=== PATIENT | female | born 1980 | race Caucasian/White ===

== ENCOUNTER 2019-06-21 03:25 | Emergency (ER) | payer MEDICAID ==
[~2019-06-21] VITALS: Ht 154.9 cm; Wt 75.7 kg
--- NOTE | 2019-06-21 03:27 | NUR ---
PT HASMU[facility] ALS. TAKEN TO BED 9
--- NOTE | 2019-06-21 03:33 | NUR ---
Dr. Oliver examining patient.
[2019-06-21 03:34] VITALS: BP 146/95
[2019-06-21] MEDS ORDERED: NACL 0.9% 1,000 ML IV ONE (03:40)
--- NOTE | 2019-06-21 03:45 | NUR ---
CALLED RADIOLOGY FOR STAT HEAD CT / CODE BRAIN
--- NOTE | 2019-06-21 03:50 | NUR ---
38 Y/O F BIBA C/O CHEST PAIN PROVOKED BY COUGH X 3 DAYS. ETOH USED REPORTED THIS EVENING. PT STATES RT ARM NUMBNESS AND WEAKNESS ACCOMPANIED LOSS OF SENSATION. UPON ASSESSMENT, PT HAS UNEQUAL TRAFFIC LIEUTENANT AND IS STATING DIFFERENCES IN SENSATION IN RT AND LT ARM. PUPILS REACTIVE, AAO X4, NO FACIAL DROOP NOTED, CLEAR SPEECH, STEADY GAIT. LUNG SOUNDS CLEAR THROUGHOUT. NO RESPIRATORY DISTRESS NOTED, NO USE OF ACCESSORY MUSCLES. BED IN LOWEST POSITION, SIDE RAIL UP X1. HX: DIABETES BS: [id number] ALLERGIES: NKA
--- NOTE | 2019-06-21 03:53 | NUR ---
PT TAKEN TO CT
--- NOTE | 2019-06-21 03:53 | NUR ---
pt transported to ct via [facility].
[2019-06-21 04:03] LABS: BASOPHILS # (AUTO) 0.1 K/uL (0.00-0.22); BASOPHILS % (AUTO) 0.7 % (0.0-2.0); EOSINOPHILS # (AUTO) 0.1 K/uL (0-0.4); EOSINOPHILS % (AUTO) 1.1 % (0.0-4.0); HEMOGLOBIN 12.2 g/dL (12.0-16.0); LYMPHOCYTES # (AUTO) 2.8 K/uL (2.5-16.5); LYMPHOCYTES % (AUTO) 24.1 % (20.5-51.1); MEAN CORPUSCULAR HEMOGLOBIN 20 pg (27-31); MEAN CORPUSCULAR HGB CONC 31 g/dL (33-37); MEAN CORPUSCULAR VOLUME 62.2 fL (80-94); MONOCYTES # (AUTO) 0.6 K/uL (0.8-1.0); MONOCYTES % (AUTO) 5.5 % (1.7-9.3); NEUTROPHILS # (AUTO) 8.1 K/uL (1.8-7.7); NEUTROPHILS % (AUTO) 68.6 % (42.2-75.2); PLATELET COUNT (AUTO) 248 K/uL (140-450); RED BLOOD CELL COUNT(AUTO) 6.27 MIL/uL (4.20-5.40); RED CELL DISTRIBUTION WIDTH 16.3 % (11.6-13.7); WHITE BLOOD COUNT (AUTO) 11.8 K/uL (4.8-10.8)
--- NOTE | 2019-06-21 04:16 | NUR ---
PT RETURN FROM CT
[2019-06-21 04:18] LABS: BARBITURATE, URINE NEGATIVE ng/ml (NEG <=200); BENZODIAZEPINE, URINE NEGATIVE ng/mL (NEG <=200); CANNABINOID, URINE NEGATIVE ng/mL (NEG <=50); COCAINE, URINE NEGATIVE ng/mL (NEG <=300); OPIATE, URINE NEGATIVE ng/mL (NEG <=2000); PHENCYCLIDINE SCREEN,URINE NEGATIVE ng/mL (NEG <=25)
[2019-06-21 04:19] LABS: ANION GAP 20.9 (8-16); ASPARTATE AMINOTRANSFERASE 51 U/L (15-37); CARBON DIOXIDE 20.7 mmol/L (21-32); CHLORIDE 98 mmol/L (98-107); CREATININE 0.8 mg/dL (0.6-1.3); GFR ARICAN-AMERICAN 104 mL/min (>90); POTASSIUM 3.6 mmol/L (3.5-5.1); SODIUM SERUM 136 mmol/L (136-145); TOTAL BILIRUBIN 0.3 mg/dL (0.0-1.0); UREA NITROGEN, BLOOD 9 mg/dL (7-18)
[2019-06-21 04:29] LABS: ACETAMINOPHEN < 0.5 ug/ml (10-30); GLUCOSE 411 mg/dL (74-106); SALICYLATE < 2.8 mg/dL (2.8-20.0)
--- NOTE | 2019-06-21 04:37 | NUR ---
DR. DAVIS AT BEDSIDE.
--- NOTE | 2019-06-21 04:39 | NUR ---
PT ASLEEP, SYMMETRICAL CHEST RISE NOTED. NO RESPIRATORY DISTRESS NOTED. BED IN LOWEST POSITION, SIDE RAIL UP X2. WILL CONTINUE TO MONITOR.
[2019-06-21 05:53] VITALS: BP 130/74
--- NOTE | 2019-06-21 05:55 | NUR ---
Patient discharged with v/s stable. Written and verbal after care instructions given and explained. Patient verbalized understanding. Ambulatory with steady gait. All questions addressed prior to discharge. Advised to follow up with PMD.
== END 2019-06-21 05:55 | disposition home or self-care (01) ==
LOC: MED 03:25
DX: R20.2 Paresthesia of skin (principal); E11.65 Type 2 diabetes mellitus with hyperglycemia
CPT/HCPCS: 36415; 70450; 80053; 80305; 81025; 85025; 96360; 99284; G0480; G0482; J7030

== ENCOUNTER 2019-07-18 00:42 | Emergency (ER) | payer MEDICAID ==
[~2019-07-18] VITALS: Ht 154.9 cm; Wt 79.8 kg
--- NOTE | 2019-07-18 00:49 | NUR ---
ISABEL NOE TO ER BED 4 @ [id number]
--- NOTE | 2019-07-18 00:50 | NUR ---
PT PLACED ON 3 LEAD ECG AND PULSE OX.
--- NOTE | 2019-07-18 00:54 | NUR ---
ERMD BEDSIDE EVALUATING PT
[2019-07-18 01:00] VITALS: BP 123/89
[2019-07-18] MEDS ORDERED: ONDANSETRON 4 MG/2 ML VIAL IVP ONE (01:00)
[2019-07-18] MEDS ORDERED: NACL 0.9% 1,000 ML IV ONE (01:00)
[2019-07-18] MEDS ORDERED: PANTOPRAZOLE 40 MG INJ VIAL IVP ONE (01:00)
--- NOTE | 2019-07-18 01:00 | NUR ---
ASSISTED PT TO RESTROOM TO COLLECT URINE SAMPLE. PT GAIT A LITTLE UNSTEADY. PT STATES FEELS DIZZY. DID NOT LEAVE PT'S SIDE.
--- NOTE | 2019-07-18 01:02 | NUR ---
38 Y/O FEMALE BIBA C/O BLOOD SUGAR 300+ AT HOME AND VOMITING DARK BLOOD PER PT A FEW HOURS AGO. PT WAS DRINKING COPIOUS AMOUNTS OF ALCOHOL PRIOR TO CALLING EMS. PT STATES LEFT BREAST AREA CHEST PAIN 8/10 NON RADIATING; HR 88, RR18, BP 121/91, 94% O2 SAT ROOM AIR ; +V/N. -DIARRHEA. SKIN IS PINK/WARM/DRY; AAOX4 ;UNABLE TO ASSESS GAIT AT THIS TIME. LUNGS CLEAR BL; PLACED ON BEDSIDE MONITOR; PT DENIES ANY FEVER, SOB, OR COUGH AT THIS TIME; PATIENT POSITIONED FOR COMFORT; HOB ELEVATED; BEDRAILS UP X2; BED DOWN AND LOCKED. ER MD MADE AWARE OF PT STATUS. MEDICAL HX: COLEMAN WHALEN
--- NOTE | 2019-07-18 01:04 | NUR ---
jude emt at bedside doing ekg.
--- NOTE | 2019-07-18 01:04 | NUR ---
ASSISTED PT TO AMBULATE BACK TO BED 4 WITH A LITTLE BIT OF UNSTEADY GAIT. CONNECTED PT BACK TO BEDSIDE MONITOR, VSS, BED LOW AND LOCKED AND 2 SIDERAILS UP. WILL CONTINUE TO MONITOR.
[2019-07-18 01:14] LABS: BASOPHILS # (AUTO) 0.1 K/uL (0.00-0.22); BASOPHILS % (AUTO) 0.6 % (0.0-2.0); EOSINOPHILS # (AUTO) 0.2 K/uL (0-0.4); EOSINOPHILS % (AUTO) 1.8 % (0.0-4.0); HEMOGLOBIN 11.5 g/dL (12.0-16.0); LYMPHOCYTES # (AUTO) 3.9 K/uL (2.5-16.5); LYMPHOCYTES % (AUTO) 29.8 % (20.5-51.1); MEAN CORPUSCULAR HEMOGLOBIN 19 pg (27-31); MEAN CORPUSCULAR HGB CONC 31 g/dL (33-37); MEAN CORPUSCULAR VOLUME 62.5 fL (80-94); MONOCYTES # (AUTO) 0.5 K/uL (0.8-1.0); MONOCYTES % (AUTO) 4.1 % (1.7-9.3); NEUTROPHILS # (AUTO) 8.4 K/uL (1.8-7.7); NEUTROPHILS % (AUTO) 63.7 % (42.2-75.2); PLATELET COUNT (AUTO) 283 K/uL (140-450); RED BLOOD CELL COUNT(AUTO) 5.92 MIL/uL (4.20-5.40); WHITE BLOOD COUNT (AUTO) 13.1 K/uL (4.8-10.8)
[2019-07-18 01:30] LABS: ALBUMIN 3.7 g/dL (3.4-5.0); ASPARTATE AMINOTRANSFERASE 66 U/L (15-37); CARBON DIOXIDE 19.7 mmol/L (21-32); CHLORIDE 103 mmol/L (98-107); CREATININE 0.9 mg/dL (0.6-1.3); GFR ARICAN-AMERICAN 91 mL/min (>90); POTASSIUM 3.7 mmol/L (3.5-5.1); SODIUM SERUM 139 mmol/L (136-145); TOTAL BILIRUBIN 0.2 mg/dL (0.0-1.0); UREA NITROGEN, BLOOD 7 mg/dL (7-18)
[2019-07-18 01:33] LABS: ACETAMINOPHEN < 0.5 ug/ml (10-30); GLUCOSE 435 mg/dL (74-106); SALICYLATE < 2.8 mg/dL (2.8-20.0)
[2019-07-18] MEDS ORDERED: INSULIN REGULAR, HUMAN 100 UNIT/ML VIAL IVP ONE (01:35)
--- NOTE | 2019-07-18 02:17 | NUR ---
PT ASLEEP IN BED IN POSITION OF COMFORT, BED LOW AND LOCKED, 2 SIDERAILS UP, VSS, WILL CONTINUE TO MONITOR
[2019-07-18 02:23] LABS: BARBITURATE, URINE NEGATIVE ng/ml (NEG <=200); BENZODIAZEPINE, URINE NEGATIVE ng/mL (NEG <=200); CANNABINOID, URINE NEGATIVE ng/mL (NEG <=50); COCAINE, URINE POSITIVE ng/mL (NEG <=300); OPIATE, URINE NEGATIVE ng/mL (NEG <=2000); PHENCYCLIDINE SCREEN,URINE NEGATIVE ng/mL (NEG <=25)
--- NOTE | 2019-07-18 02:43 | NUR ---
PHONED PT'S CELL AND HER FRIEND BEV ANSWERED AND STATED SHE WILL COME OPHTHALMIC TECHNICIAN APPRENTICE PT FROM [facility] ER.
[2019-07-18 02:54] VITALS: BP 97/52
--- NOTE | 2019-07-18 02:54 | NUR ---
Patient discharged with v/s stable. Written and verbal after care instructions given and explained. Patient alert, oriented and verbalized understanding of instructions. Wheel Chair Assisted with to ER LOBBY TO WAIT FOR RIDE. All questions addressed prior to discharge. ID band removed. Patient advised to follow up with PMD. Rx of PROTONIX/ZOFRAN given. Patient educated on indication of medication including possible reaction and side effects. Opportunity to ask questions provided and answered.
== END 2019-07-18 02:54 | disposition home or self-care (01) ==
LOC: MED 00:42
DX: K22.6 Gastro-esophageal laceration-hemorrhage syndrome (principal); E11.8 Type 2 diabetes mellitus with unspecified complications; E11.65 Type 2 diabetes mellitus with hyperglycemia; F14.90 Cocaine use, unspecified, uncomplicated
CPT/HCPCS: 36415; 80053; 80305; 85025; 93005; 96361; 96374; 96375; 99284; C9113; G0480; G0482; J1815; J2405; J7030